=== PATIENT | female | born 1970 | race Caucasian/White ===

== ENCOUNTER 2022-06-08 08:00 | Outpatient (CLI) | payer BC ==
[2022-06-08 22:53] LABS: BACTERIAL VAGINOSIS DNA NEGATIVE (NEGATIVE); CANDIDA GLABRATA DNA NEGATIVE (NEGATIVE); CANDIDA GROUP DNA POSITIVE (NEGATIVE); CANDIDA KRUSEI DNA NEGATIVE (NEGATIVE); TRICHOMONAS VAGINALIS DNA NEGATIVE (NEGATIVE)
[2022-06-08 23:57] LABS: CHLAMYDIA TRACHOMATIS DNA NEGATIVE (NEGATIVE); NEISSERIA GONORRHOEAE DNA NEGATIVE (NEGATIVE)
[2022-06-09 04:09] LABS: RPR Non Reactive (Non Reactive)
[2022-06-09 05:09] LABS: HCV AB 0.2 s/co ratio (0.0-0.9)
[2022-06-10 06:08] LABS: HIV SCREEN 4TH GENERATION Non Reactive (Non Reactive)
== END 2022-06-08 23:59 | disposition home or self-care (01) ==
LOC: LAB.N 08:00
PROVIDERS: ATTEND Physician Assistant Medical
DX: Z91.89 Other specified personal risk factors, not elsewhere classified (principal)
CPT/HCPCS: 36415; 81514; 86592; 86803; 87389; 87491; 87591; 87661

== ENCOUNTER 2022-06-10 09:52 | Outpatient (CLI) | payer BC | END 2022-06-10 09:53 | disposition home or self-care (01) | LOC: LAB 09:52 | PROVIDERS: ATTEND Surgery | DX: Z01.812 Encounter for preprocedural laboratory examination (principal); N60.91 Unspecified benign mammary dysplasia of right breast; Z28.310 Unvaccinated for COVID-19; Z20.822 Contact with and (suspected) exposure to COVID-19 ==

== ENCOUNTER 2022-06-11 08:06 | Day surgery (SDC) | payer BC ==
[~2022-06-11 08:06] MED LIST: ACETAMINOPHEN 500 MG TABLET PO ONE; CEFAZOLIN 2G/50ML 0.9% NS 2 GM/50 ML BAG IV ONE; CELECOXIB 100 MG CAPSULE PO ONE
[2022-06-11] MEDS ORDERED: lidocaine 1% 20 ML MDV ONE (08:16)
[2022-06-11] MEDS ORDERED: LIDOCAINE 1%-EPI 1:100000 20 ML MDV ONE (08:16)
[2022-06-11 08:40] LABS: HCG UR QUAL NEGATIVE
[2022-06-11] MEDS ORDERED: BUPIVACAINE 0.5% PF 30 ML VIAL ONE (09:28)
[2022-06-11] MEDS ORDERED: LIDOCAINE MPF 2%-EPI 1:200000 20 ML VIAL ONE (09:28)
[2022-06-11] MEDS ORDERED: MIDAZOLAM 2 MG/2 ML VIAL ONE (10:30)
[2022-06-11] MEDS ORDERED: PROPOFOL 200 MG/20 ML VIAL IVP ONE (10:30)
[2022-06-11] MEDS ORDERED: fentaNYL 100 MCG/2 ML VIAL ONE (10:30)
--- NOTE | 2022-06-11 10:40 | ANESTHESIA ---
Pre-Anesthesia VS, & Labs - Diagnosis right breast mass - Procedure right breast excision mass with needle loc. Vital Signs: Temp Pulse Resp BP Pulse Ox O2 Flow Rate 36.8 C 76 13 121/72 100 06/11/22 08:32 06/11/22 08:32 06/11/22 08:32 06/11/22 08:32 06/11/22 08:32 Height: 5 ft 5 in Weight (kg): 76 kg Body Mass Index: 27.8 BMI Classification: Overweight - NPO >8 hours - Is Patient ?: No Home Medications and Allergies Home Medications: Ambulatory Orders Ibuprofen [Motrin] 600 mg PO Q6H PRN 05/23/22 Thyroid,Pork [Ellinger Thyroid] 60 mg PO DAILY 05/23/22 Ibuprofen [Motrin] 600 mg PO Q6H PRN 05/23/22 Thyroid,Pork [Ellinger Thyroid] 60 mg PO DAILY 05/23/22 Allergies/Adverse Reactions: Allergies Allergy/AdvReac Type Severity Reaction Status Date / Time hydrocodone [From [place]] AdvReac Itching Verified 05/23/22 14:12 Anes History & Medical History - Anesthetic History Anesthesia Complications: reports: No previous complications - Medical History Cardiovascular: reports: Murmur (ECHO normal.) Pulmonary: reports: Other (hilar mass) Gastrointestinal: reports: GERD Urinary: reports: Other Neuro: reports: None Musculoskeletal: reports: Osteoarthritis, Fatigue, Other Endocrine/Autoimmune: reports: HyPOthyroidism Blood Disorders: reports: None Skin: reports: None Smoking Status: Never smoker Psychosocial: reports: Anxiety, Cannabis (daily use) History of Cancer?: No Other Past Medical History: lyme disease - Surgical History General: reports: Colonoscopy Eyes Ears Nose Throat (EENT): reports: Tonsil/Adenoidectomy Cardiothoracic: reports: Other Orthopedic: reports: Knee replacement, Arthroscopic surgery Exam General: Alert, Oriented x3, Cooperative, No acute distress Dental: WNL, Other Mouth and Teeth Image: 1 - Missing Mouth Openin Fingerbreadth Neck Mobility: Normal Mallampati classification: I Thyromental Distance: 4-6 cm Mental/Cognitive Status: Alert/Oriented X3, Normal for patient Plan Anesthesia Type: General Consent for Procedure(s) Verified and Reviewed: Yes Code Status: Attempt Resuscitation ASA classification: 2-Mild systemic disease Is this case an emergency?: No
[2022-06-11] MEDS ORDERED: LIDOCAINE MPF 2%-EPI 1:200000 20 ML VIAL SUBQ ONE ×2 (11:59)
[2022-06-11] MEDS ORDERED: BUPIVACAINE 0.5% PF 30 ML VIAL SUBQ ONE ×2 (11:59)
[2022-06-11] MEDS ORDERED: SEVOFLURANE 250 ML LIQUID INH ONE (12:01)
[2022-06-11] MEDS ORDERED: LACTATED RINGERS 1,000 ML IV ONE ×2 (12:43→13:56)
[2022-06-11] MEDS ORDERED: oxyCODONE 5 MG TABLET PO PRN (12:44)
[2022-06-11] MEDS ORDERED: ONDANSETRON 4 MG/2 ML VIAL IVP PRN ×2 (12:44→13:03)
--- NOTE | 2022-06-11 12:51 | OPERATIVE REPORT ---
Operative Report - General Procedure Date: 06/11/22 Planned Procedure: excisional biopsy, right breast Pre-Op Diagnosis: atypical ductal hyperplasia Procedure Performed: excisional biopsy, right breast Post Op Diagnosis: atypical ductal hyperplasia - Procedure Note Primary Surgeon: Dr. Janet Mccain Anesthesia Provider: Sameera Prieto CRNA Anesthesia Technique: General LMA, Local Pathology: 1. right breast excisional biopsy, history of ADH 2. lateral margin Both oriented short superior, long lateral, double anterior Estimated Blood Loss (mL): 20 Indications: The patient had an abnormal mammogram with calcifications. Subsequent biopsy revealed atypical ductal hyperplasia at the 11 o'clock position. She had a second biopsy at 10:00 which demonstrated atypical lobular hyperplasia. She was seen and evaluated in the clinic where we discussed excision of the 11:00 lesion. We discussed the risks, benefits, and alternatives including bleeding, infection, damage to surrounding structures, and positive margins or upgrade of the specimen to DCIS or invasive ductal carcinoma requiring further excision. The patient voiced understanding, her questions were answered, and she wished to proceed.A consent was signed by the patient in clinic. Findings: 1.Clip in specimen #1 on specimen mammography. 2. Lateral margin reexcised as clip was noted to be along the lateral edge of the initial specimen Complications: None - Other Other Information/Narrative: The patient was taken to the operating room and placed in the supine position. Preop antibiotics were given. ERAS medications were given. The patient was prepped and draped in the usual sterile fashion. Prior to surgery, I had a discussion with the radiologist who placed wires at both clips placed of the patient's previous biopsy. Only the 11:00 lesion needs to be excised, and this correlates to the more superior wire. The radiologist and I agreed that this wire was going to the lesion of concern. A preop surgical timeout was performed. Attention was turned to the patient's right breast. An incision was made which incorporated the superior wire. The wire was followed to the area where a curved which was approximately 1 cm away from the clip on the preoperative mammogram. There was no palpable mass. The biopsy specimen was removed and oriented with a suture on the back table. A clip was visible along the lateral aspect of the specimen. The specimen was sent to mammography the previously placed biopsy clip were confirmed to be within the specimen. Due to the location of the biopsy clip, I elected to excise a second specimen labeled lateral margin. Once removed, the specimen was also oriented on the back table with suture. Both specimens were sent to pathology. Hemostasis was confirmed. The deep dermal tissues were closed with 3-0 Vicryl in an interrupted fashion. The skin was closed with 4-0 Monocryl in a running subcuticular fashion. Skin glue was placed over the incision. The patient tolerated the procedure well. There were no complications.
[2022-06-11] MEDS ORDERED: ePHEDrine 50 MG/ML VIAL IVP PRN (13:03)
[2022-06-11] MEDS ORDERED: MORPHINE 2 MG/ML CARPUJECT IVP PRN (13:03)
[2022-06-11] MEDS ORDERED: fentaNYL 100 MCG/2 ML VIAL IVP PRN (13:03)
[2022-06-11] MEDS ORDERED: HYDROmorphone 0.5 MG/0.5 ML SYRINGE IVP PRN (13:03)
[2022-06-11] MEDS ORDERED: ATROPINE ABBOJECT 1 MG/10 ML SYRINGE IVP PRN (13:03)
[2022-06-11] MEDS ORDERED: NALOXONE 0.4 MG/ML VIAL IVP PRN (13:03)
[2022-06-11] MEDS ORDERED: METOCLOPRAMIDE 10 MG/2 ML VIAL IVP PRN (13:03)
[2022-06-11] MEDS ORDERED: LACTATED RINGERS 1,000 ML IV SCH (14:00)
[2022-06-11 14:31] VITALS: BP 121/70
[2022-06-11] MEDS ORDERED: lidocaine 1% 20 ML MDV SUBQ ONE (15:31)
--- NOTE | 2022-06-12 09:54 | Mammography Report ---
NEEDLE LOCALIZATION RIGHT BREAST: 06/11/2022 CLINICAL: Pre op right breast wire localization with mammography. Correlation is made to exams dated: 02/12/2022 stereotactic biopsy, 02/12/2022 stereotactic biopsy - [facility], 01/31/2022 mammogram, 01/22/2022 mammogram, and 04/15/2014 mammogram - [facility]. A needle localization was performed for the surgical clip located in the right breast at 11 o'clock p osterior depth. The skin was prepped in the usual manner. A needle was inserted into the targeted a kristina. A needle localization was performed for the surgical clip located in the right breast at 10 o'clock p osterior depth. The skin was prepped in the usual manner. A needle was inserted into the targeted a kristina. IMPRESSION: NEEDLE LOCALIZATION Needle localization of the right breast 10:00 and 11:00 surgical clips was performed. This exam was interpreted at Station ID: [id number]. Issac nelson/:06/11/2022 11:04:30 BI-RADS CATEGORY: () - Biopsy follow-up recall n/a LATERALITY: (B)
--- NOTE | 2022-06-12 09:54 | Mammography Report ---
SPECIMEN: 06/11/2022 CLINICAL: Right breast specimen. Correlation is made to exams dated: 06/11/2022 localization - [facility], 02/12/2022 specimen, 02/12/2022 specimen, 02/12/2022 stereotactic biopsy, 02/12/2022 stereotactic biopsy - [facility], and [facility]/20[facility]. Right breast lumpectomy specimen contains the coil biopsy clip. Localization wire is not included. Sm all calcifications are seen. Second right breast lumpectomy specimen contains a localization wire. The ribbon clip is no seen in t hese specimen. Small calcifications are seen. IMPRESSION: SPECIMEN Right breast lumpectomy specimen contains the coil biopsy clip. Second right breast lumpectomy specimen contains a localization wire. The ribbon clip is no seen in t hese specimen. Recommend clinical correlation. This exam was interpreted at Station ID: [id number]. Star Valera M.D. slc/:06/11/2022 15:49:24 BI-RADS CATEGORY: () - Unspecified - other recall n/a LATERALITY: (B)
== END 2022-06-11 08:07 | disposition home or self-care (01) ==
LOC: SDS 08:06
PROVIDERS: ATTEND Surgery
PROC: 0HBT0ZX Excision of Right Breast, Open Approach, Diagnostic (ICD-10-PCS; principal; 2022-06-11 10:30)
DX: N60.91 Unspecified benign mammary dysplasia of right breast (principal); N60.11 Diffuse cystic mastopathy of right breast; Z32.02 Encounter for pregnancy test, result negative
CPT/HCPCS: 19125; 19281; 76098; 81025; A9270; J0690; J3490; J7120

== ENCOUNTER 2022-08-14 12:00 | Outpatient (CLI) | payer BC ==
[2022-08-14 23:06] LABS: CHLAMYDIA TRACHOMATIS DNA NEGATIVE (NEGATIVE); NEISSERIA GONORRHOEAE DNA NEGATIVE (NEGATIVE); TRICHOMONAS VAGINALIS DNA NEGATIVE (NEGATIVE)
[2022-08-16 05:11] LABS: RPR Non Reactive (Non Reactive)
[2022-08-16 07:10] LABS: HSV 2 IGG TYPE SPEC <0.91 index (0.00-0.90)
[2022-08-16 09:10] LABS: HCV AB <0.1 s/co ratio (0.0-0.9); HIV SCREEN 4TH GENERATION Non Reactive (Non Reactive)
== END 2022-08-14 12:30 | disposition home or self-care (01) ==
LOC: LAB.N 12:00
PROVIDERS: ATTEND Registered Nurse
DX: Z91.89 Other specified personal risk factors, not elsewhere classified (principal)
CPT/HCPCS: 36415; 86592; 86695; 86696; 86803; 87389; 87491; 87591; 87661

== ENCOUNTER 2022-09-14 07:18 | Outpatient (CLI) | payer BC ==
[2022-09-14 11:49] LABS: BASOPHILS % (AUTO) 1.1 %; EOSINOPHILS # (AUTO) 0.1 10^3/uL (0.0-0.7); EOSINOPHILS % (AUTO) 1.3 %; HCT - HEMATOCRIT 45.6 % (37.0-47.0); HGB - HEMOGLOBIN 14.7 g/dL (12.0-16.0); LYMPHOCYTES # (AUTO) 1.2 10^3/uL (1.5-3.5); LYMPHOCYTES % (AUTO) 32.6 %; MEAN CORPUSCULAR HEMOGLOBIN 29.7 pg (27.0-31.0); MEAN CORPUSCULAR HGB CONC 32.2 g/dL (32.0-36.0); MEAN CORPUSCULAR VOLUME 92.1 fL (81.0-99.0); MONOCYTES # (AUTO) 0.3 10^3/uL (0.0-1.0); MONOCYTES % (AUTO) 8.7 %; NEUTROPHILS # (AUTO) 2.1 10^3/uL (1.5-6.6); PLT - PLATELET COUNT 339 10^3/uL (130-450); RED BLOOD COUNT 4.95 10^6/uL (4.20-5.40); WHITE BLOOD COUNT 3.8 x10^3/uL (4.8-10.8)
[2022-09-14 12:21] LABS: ESTIMATED AVERAGE GLUCOSE 117 mg/dL (70-100); HEMOGLOBIN A1c% 5.7 % (4.27-6.07)
[2022-09-14 12:23] LABS: ALBUMIN 4.3 g/dL (3.2-5.5); ALBUMIN/GLOBULIN RATIO 1.5 (1.0-2.2); ALKALINE PHOSPHATASE 35 IU/L (42-121); ALT ALANINE AMINOTRANSFERASE 20 IU/L (10-60); AST ASPARTATE AMINOTRANSFERASE 17 IU/L (10-42); BILIRUBIN,TOTAL 0.6 mg/dL (0.2-1.0); BUN - BLOOD UREA NITROGEN 17 mg/dL (6-20); CALCIUM 9.7 mg/dL (8.5-10.3); CARBON DIOXIDE - CO2 27 mmol/L (21-32); CHLORIDE 105 mmol/L (101-111); CHOL/HDL RATIO 2.2 (<4.4); CHOLESTEROL 195 mg/dL; CREATININE 0.8 mg/dL (0.4-1.0); GFR - MDRD 75 (>89); GLUCOSE 95 mg/dL (70-100); HDL CHOLESTEROL 90 mg/dL; LDL CHOLESTEROL,CALCULATED 93 mg/dL; POTASSIUM 4.4 mmol/L (3.5-5.0); SODIUM 139 mmol/L (135-145); THYROID STIMULATING HORMONE 1.66 uIU/mL (0.34-5.60); TOTAL PROTEIN 7.1 g/dL (6.7-8.2); TRIGLYCERIDES 62 mg/dL; VLDL CHOLESTEROL 12 mg/dL
[2022-09-14 12:28] LABS: FREE T3 2.96 pg/mL (2.5-3.9); FREE T4 (FREE THYROXINE) 0.69 ng/dL (0.58-1.64)
[2022-09-14 12:35] LABS: FOLATE 18.11 ng/mL (5.90 - >24.8)
[2022-09-14 12:52] LABS: FOLLICLE STIMULATING HORMONE 67.8 mIU/mL
== END 2022-09-14 07:19 | disposition home or self-care (01) ==
LOC: LAB.N 07:18
PROVIDERS: ATTEND Physician Assistant
DX: E03.9 Hypothyroidism, unspecified (principal); R53.83 Other fatigue; Z13.220 Encounter for screening for lipoid disorders; E55.9 Vitamin D deficiency, unspecified; N91.2 Amenorrhea, unspecified; R73.01 Impaired fasting glucose
CPT/HCPCS: 36415; 80053; 80061; 82306; 82607; 82746; 83001; 83036; 83721; 84439; 84443; 84481; 85025

== ENCOUNTER 2022-10-01 15:15 | Outpatient (CLI) | payer BC ==
--- NOTE | 2022-10-01 16:10 | DEXA Report ---
PROCEDURE: Dexa Spine and/or Hip INDICATIONS: POST MENOPAUSAL TECHNIQUE: Dual energy x-ray absorptiometry (DXA) was performed on a [employer] System. Regions measur ed are the AP Spine, femoral neck, and if needed forearm. COMPARISON: None. FINDINGS: Lumbar Spine: Bone Mineral Density 1.171 g/cm/cm,T score -0.1, normal Left Femoral Neck: Bone Mineral Density 0.889 g/cm/cm, T score -1.1, mild osteopenia Left Hip: Bone Mineral Density 0.978 g/cm/cm,T score -0.2, normal (T score greater or equal to -1.0: NORMAL) (T score from -1.1 to -2.4: OSTEOPENIA) (T score less than or equal to -2.5 to: OSTEOPOROSIS) Impression: 1. Mild osteopenia left femoral neck. Patients with diagnosis of osteoporosis or osteopenia should have regular bone mineral density assess ment. For those eligible for Medicare, routine testing is allowed once every 2 years. Testing frequ ency can be increased for patients who have rapidly progressing disease or for those who are receivin g medical therapy to restore bone mass. Reviewed by: Carlos Saravia MD on 10/01/2022 4:09 PM PDT Approved by: Carlos Saravia MD on 10/01/2022 4:09 PM PDT Station ID: [id number]
== END 2022-10-01 15:16 | disposition home or self-care (01) ==
LOC: DI 15:15
PROVIDERS: ATTEND Physician Assistant
DX: M85.88 Other specified disorders of bone density and structure, other site (principal); Z78.0 Asymptomatic menopausal state; Z82.62 Family history of osteoporosis

== ENCOUNTER 2023-03-05 13:06 | Outpatient (CLI) | payer BC ==
--- NOTE | 2023-03-06 16:26 | Ultrasound Report ---
LIMITED ULTRASOUND OF RIGHT BREAST: 03/05/2023 CLINICAL: Post right lumpectomy. Comparison is made to exams dated: 03/05/2023 mammogram, 06/11/2022 specimen, 06/11/2022 localization - [facility], 02/12/2022 specimen, 02/12/2022 specimen, and 02/12/2022 stereotactic biopsy - [facility]. Color flow and real-time ultrasound of the right breast upper outer quadrant and retroareolar regions were performed. Cerna scale images of the real-time examination were reviewed. The right breast has expected post-operative findings. No significant abnormalities were seen sonographically in the right breast. IMPRESSION: PROBABLY BENIGN There is no abnormality seen in the right breast to correspond with the mammography finding described as a possible developing oval asymmetry which likely represents normal fibroglandular tissue and is probably benign. No sonographic abnormalities correlating with site of prior surgery. A follow-up right mammogram and with possible ultrasound in 6 months is recommended to demonstrate st ability. Findings and recommendations were conveyed to the patient during today's evaluation. This exam was interpreted at Station ID: [id number]. Electronically Signed By: Aleks Parry M.D. aty/:03/05/2023 15:56:07 Ultrasound BI-RADS: 3 Probably benign BI-RADS CATEGORY: (3) - 3 Mammo and [place] [id number] 6 month follow-up LATERALITY: (R)
--- NOTE | 2023-03-06 16:26 | Mammography Report ---
BILATERAL DIGITAL DIAGNOSTIC MAMMOGRAM 3D/2D WITH SPOT COMPRESSION: 03/05/2023 CLINICAL: Post right lumpectomy. Due for bilateral. Comparison is made to exams dated: 06/11/2022 localization - [facility], 02/12/2022 s tereotactic biopsy, 02/12/2022 stereotactic biopsy - [facility], 01/31/2022 mammogram, 2021 mammogram, and 04/15/2014 [facility] [place]. Both breasts are heterogeneously dense, which may obscure small masses (category c / 51-75% glandular tissue). The right breast has post-operative findings without definite suspicious mammographic findings. There is a possible developing 0.9 cm oval equal density asymmetry in the right breast posterior dept h superior region seen on the mediolateral oblique view only. No other significant masses, calcifications, or other findings are seen in either breast. IMPRESSION: INCOMPLETE: NEEDS ADDITIONAL IMAGING EVALUATION The possible developing 0.9 cm oval equal density asymmetry in the right breast resembles a cyst or f ibroglandular tissue and is indeterminate. An ultrasound is recommended for further evaluation and i s scheduled to immediately follow this examination. Interval post operative changes of the right breast upper outer quadrant. An ultrasound is recommende d for further evaluation and is scheduled to immediately follow this examination. Based on Tyrer-Cuzick model (a risk assessment model), the patient's lifetime risk is 43.1% and her 1 0 year risk is 13.3%. If a patient has an elevated risk, a more comprehensive evaluation should be co nsidered and/or a referral to a genetic counselor. The [employer], [employer], and NCCN Guidelines advise the consideration of Breast MRI as an adjunct to screening mammo graphy in patients whose "Lifetime risk to develop breast cancer" is 20% or higher. This exam was interpreted at Station ID: [id number]. NOTE: For mammograms, a report in lay terms will be sent to the patient. Approximately 15% of breast malignancies will not be visualized mammographically. In the management of a palpable breast mass, a negative mammogram must not discourage biopsy of a clinically suspicious lesion. Electronically Signed By: Aleks Parry M.D. aty/:03/05/2023 15:53:57 ACR BI-RADS Category 0: Incomplete 3340F PARENCHYMAL PATTERN: (D) - The breast(s) demonstrate(s) heterogeneously dense fibroglandular parenchy ma. BI-RADS CATEGORY: (0) - 0 Ultrasound [id number] Immediate follow-up LATERALITY: (R)
== END 2023-03-05 13:07 | disposition home or self-care (01) ==
LOC: DI 13:06
PROVIDERS: ATTEND Surgery
DX: N60.91 Unspecified benign mammary dysplasia of right breast (principal); R92.8 Other abnormal and inconclusive findings on diagnostic imaging of breast

== ENCOUNTER 2023-03-27 11:29 | Outpatient (CLI) | payer BC ==
[2023-03-27 17:48] LABS: BASOPHILS # (AUTO) 0.1 10^3/uL (0.0-0.1); BASOPHILS % (AUTO) 1.7 %; EOSINOPHILS # (AUTO) 0.2 10^3/uL (0.0-0.7); EOSINOPHILS % (AUTO) 3.2 %; HCT - HEMATOCRIT 42.5 % (37.0-47.0); HGB - HEMOGLOBIN 13.8 g/dL (12.0-16.0); LYMPHOCYTES # (AUTO) 1.4 10^3/uL (1.5-3.5); MEAN CORPUSCULAR HEMOGLOBIN 29.7 pg (27.0-31.0); MEAN CORPUSCULAR HGB CONC 32.5 g/dL (32.0-36.0); MEAN CORPUSCULAR VOLUME 91.6 fL (81.0-99.0); MEAN PLATELET VOLUME 9.4 fL (7.9-10.8); MONOCYTES # (AUTO) 0.4 10^3/uL (0.0-1.0); MONOCYTES % (AUTO) 6.9 %; NEUTROPHILS # (AUTO) 3.2 10^3/uL (1.5-6.6); PLT - PLATELET COUNT 288 10^3/uL (130-450); RED BLOOD COUNT 4.64 10^6/uL (4.20-5.40); RED CELL DISTRIBUTION WIDTH 13.4 % (12.0-15.0); WHITE BLOOD COUNT 5.3 x10^3/uL (4.8-10.8)
[2023-03-27 18:04] LABS: ALBUMIN 4.4 g/dL (3.2-5.5); ALBUMIN/GLOBULIN RATIO 1.8 (1.0-2.2); ALKALINE PHOSPHATASE 34 IU/L (42-121); ALT ALANINE AMINOTRANSFERASE 10 IU/L (10-60); AST ASPARTATE AMINOTRANSFERASE 12 IU/L (10-42); BILIRUBIN,TOTAL 0.4 mg/dL (0.2-1.0); BUN - BLOOD UREA NITROGEN 13 mg/dL (6-20); CALCIUM 9.8 mg/dL (8.5-10.3); CARBON DIOXIDE - CO2 30 mmol/L (21-32); CHLORIDE 105 mmol/L (101-111); CHOL/HDL RATIO 2.3 (<4.4); CHOLESTEROL 204 mg/dL; CREATININE 0.7 mg/dL (0.6-1.3); CRP - C-REACTIVE PROTEIN 0.5 mg/dL (<0.5); GFR - MDRD 88 (>89); GLUCOSE 104 mg/dL (74-104); HDL CHOLESTEROL 88 mg/dL; LDL CHOLESTEROL,CALCULATED 102 mg/dL; LDL/HDL RATIO 1.2 (<4.4); MAGNESIUM 1.7 mg/dL (1.7-2.3); POTASSIUM 3.8 mmol/L (3.5-4.5); SODIUM 140 mmol/L (135-145); TOTAL PROTEIN 6.9 g/dL (6.4-8.9); TRIGLYCERIDES 69 mg/dL (48-352); URIC ACID 4.1 mg/dL (2.3-6.6); VLDL CHOLESTEROL 14 mg/dL
[2023-03-27 18:18] LABS: THYROID STIMULATING HORMONE 1.17 uIU/mL (0.34-5.60)
[2023-03-27 18:27] LABS: PROLACTIN 5.35 ng/mL
[2023-03-27 18:40] LABS: RHEUMATOID FACTOR NEGATIVE (Negative)
[2023-03-27 18:55] LABS: ESTIMATED AVERAGE GLUCOSE 108 mg/dL (70-100); HEMOGLOBIN A1c% 5.4 % (4.27-6.07)
[2023-03-28 23:08] LABS: ESTRADIOL <5.0 pg/mL (.); PROGESTERONE <0.1 ng/mL (.)
[2023-03-29 02:08] LABS: VITAMIN D 25-HYDROXY 46.7 ng/mL (30.0-100.0)
[2023-03-29 19:06] LABS: ANTI-DNA (DS) AB QN 1 IU/mL (0-9)
[2023-03-29 20:07] LABS: CYCLIC CITRULLINATED PEP IGG/A 20 units (0-19)
[2023-03-31 17:08] LABS: ANTINUCLEAR ANTIBODIES IFA Negative (.)
== END 2023-03-27 11:30 | disposition home or self-care (01) ==
LOC: LAB.N 11:29
PROVIDERS: ATTEND Physician Assistant
DX: R73.03 Prediabetes (principal); E55.9 Vitamin D deficiency, unspecified; E67.8 Other specified hyperalimentation; R20.2 Paresthesia of skin; N95.1 Menopausal and female climacteric states; R23.2 Flushing; M79.10 Myalgia, unspecified site; M25.50 Pain in unspecified joint; E03.9 Hypothyroidism, unspecified
CPT/HCPCS: 36415; 80053; 80061; 81599; 82306; 82607; 82670; 82746; 83001; 83036; 83721; 83735; 84144; 84146; 84403; 84439; 84443; 84481; 84550; 85025; 85651; 86038; 86140; 86200; 86225; 86430

== ENCOUNTER 2023-06-26 09:41 | Outpatient (CLI) | payer BC ==
[2023-06-26 12:07] LABS: BASOPHILS # (AUTO) 0.1 10^3/uL (0.0-0.1); BASOPHILS % (AUTO) 1.2 %; EOSINOPHILS # (AUTO) 0.1 10^3/uL (0.0-0.7); EOSINOPHILS % (AUTO) 1.4 %; HCT - HEMATOCRIT 44.9 % (37.0-47.0); HGB - HEMOGLOBIN 14.2 g/dL (12.0-16.0); LYMPHOCYTES # (AUTO) 1.1 10^3/uL (1.5-3.5); LYMPHOCYTES % (AUTO) 23.3 %; MEAN CORPUSCULAR HEMOGLOBIN 29.5 pg (27.0-31.0); MEAN CORPUSCULAR HGB CONC 31.6 g/dL (32.0-36.0); MEAN CORPUSCULAR VOLUME 93.2 fL (81.0-99.0); MEAN PLATELET VOLUME 9.5 fL (7.9-10.8); MONOCYTES # (AUTO) 0.3 10^3/uL (0.0-1.0); NEUTROPHILS # (AUTO) 3.2 10^3/uL (1.5-6.6); NEUTROPHILS % (AUTO) 66.9 %; PLT - PLATELET COUNT 292 10^3/uL (130-450); RED BLOOD COUNT 4.82 10^6/uL (4.20-5.40); RED CELL DISTRIBUTION WIDTH 13.5 % (12.0-15.0); WHITE BLOOD COUNT 4.9 x10^3/uL (4.8-10.8)
[2023-06-26 12:32] LABS: ALBUMIN 4.3 g/dL (3.2-5.5); ALBUMIN/GLOBULIN RATIO 1.7 (1.0-2.2); ALKALINE PHOSPHATASE 36 IU/L (42-121); ALT ALANINE AMINOTRANSFERASE 16 IU/L (10-60); AST ASPARTATE AMINOTRANSFERASE 13 IU/L (10-42); BILIRUBIN,TOTAL 0.4 mg/dL (0.2-1.0); BUN - BLOOD UREA NITROGEN 20 mg/dL (6-20); CALCIUM 9.4 mg/dL (8.5-10.3); CARBON DIOXIDE - CO2 28 mmol/L (21-32); CHLORIDE 103 mmol/L (101-111); CHOL/HDL RATIO 2.6 (<4.4); CHOLESTEROL 269 mg/dL; CREATININE 0.7 mg/dL (0.6-1.3); CRP - C-REACTIVE PROTEIN < 0.5 mg/dL (<0.5); GFR - MDRD 88 (>89); GLUCOSE 105 mg/dL (74-104); HDL CHOLESTEROL 102 mg/dL; LDL CHOLESTEROL,CALCULATED 156 mg/dL; LDL/HDL RATIO 1.5 (<4.4); POTASSIUM 4.1 mmol/L (3.5-4.5); SODIUM 137 mmol/L (135-145); TOTAL PROTEIN 6.8 g/dL (6.4-8.9); TRIGLYCERIDES 57 mg/dL (48-352); VLDL CHOLESTEROL 11 mg/dL
== END 2023-06-26 09:42 | disposition home or self-care (01) ==
LOC: LAB.N 09:41
PROVIDERS: ATTEND Physician Assistant
DX: R73.03 Prediabetes (principal); N95.1 Menopausal and female climacteric states; R23.2 Flushing; E67.8 Other specified hyperalimentation; E03.9 Hypothyroidism, unspecified; M25.50 Pain in unspecified joint; R76.0 Raised antibody titer
CPT/HCPCS: 36415; 80053; 80061; 82607; 83721; 84443; 85025; 85651; 86140; 86200